=== PATIENT | female | born 1945 | race Caucasian/White ===

== ENCOUNTER → 2017-08-29 | Outpatient (CLI) | payer MEDICARE, OTHER ==
[2015-09-27 09:57] VITALS: BP 187/97
[~2017-08-29] MED LIST: AMLO1CAP12 PO; LISI1TAB3 PO; METO25TA2 PO
--- NOTE | 2017-08-30 08:18 | RAD ---
DATE: 08/29/2017 EXAM: DIGITAL SCREEN BILAT W/CAD HISTORY: Screening COMPARISON: Previous mammogram from 2014, 2012 and 2011. This study was interpreted with the benefit of Computerized Aided Detection (CAD ). FINDINGS: Breast density category B: There are scattered areas of fibroglandular density. The skin and nipples are within normal limits. There are no dominant suspicious masses, suspicious microcalcifications or evidence of architectural distortion. Benign-appearing skin calcifications are seen bilaterally. IMPRESSION: No mammographic evidence of malignancy. Stable mammogram. BI-RADS CATEGORY: 2 BENIGN FINDING RECOMMENDED FOLLOW-UP: Annual PQRS compliance statement: Patient information was entered into a reminder system with a target due date 08/29/2018 for the next mammogram. Mammography is a sensitive method for finding small breast cancers, but it does not detect them all and is not a substitute for careful clinical examination. A negative mammogram does not negate a clinically suspicious finding and should not result in delay in biopsying a clinically suspicious abnormality. "Our facility is accredited by the [employer] Mammography Program." [place]
== END | disposition home or self-care (01) ==
LOC: MAMMO 10:24
PROVIDERS: ATTEND Family Medicine
DX: Z12.31 Encounter for screening mammogram for malignant neoplasm of breast (principal)
CPT/HCPCS: G0202; 77067

== ENCOUNTER → 2018-01-19 | Outpatient (CLI) | payer MEDICARE, OTHER ==
[2015-09-27 09:57] VITALS: BP 187/97
--- NOTE | 2018-01-20 22:17 | RAD ---
MR#: [id number] Date of Study: 01/19/2018 Ordering Physician: EVANGELIST VALLECILLO, Referring Physician: EVANGELIST VALLECILLO, Tech: Samia Gilliam, RDMS, RVT, RTR APPROVED REPORT Patient Location: OUT-PATIENT Indications Peripheral Vascular Disease On the right spectral waveforms in the common femoral and profunda femoris are grossly within normal limits. The proximal SFA is occluded. There is reconstitution of the distal SFA with monophasic wavef orms. The popliteal and below-knee vessels appear to be patent without any high-grade focal disease. On the left there is again moderate diffuse atherosclerotic plaque with mildly elevated velocities in the mid SFA suggestive of 50% stenosis. The below-knee vessels are again widely patent with mostly b iphasic waveforms throughout the course. Risk Factors History of Lower Extremity PAD: Bilaterally VELOCITY AND DOPPLER WAVEFORM ANALYSIS RIGHT cm/secWaveformSeverity LEFT cm/secWaveform Severity pCFA 109.3pCFA 140.5 Prof Fem Art. 97.7Prof Fem Art. 107.4 Fem Art Prox. Fem Art Prox. 129.7 Fem Art Mid. Fem Art Mid. 194.4 Fem Art Dist. 65.1Fem Art Dist. 126.0 Pop Art(AK) 37.9Pop Art(AK) 88.2 AIRCRAFT MAINTENANCE ENGINEER Dist. 40.8PTA Dist. 52.1 Per Art Prox. 43.1Per Art Prox. 49.9 GINNY Prox. 36.1ATA Prox. 44.7 DPA 34.4DPA 36.8 Critical Notification Critical Value: No <Conclusion> 1. Occluded right superficial femoral artery 2. Moderate disease otherwise in the bilateral lower extremity arterial vessels. Signed by : Evangelist Vallecillo, Electronically Approved : 01/20/2018 22:16:28
== END | disposition home or self-care (01) ==
LOC: US 12:50
PROVIDERS: ATTEND Internal Medicine Cardiovascular Disease
DX: I70.203 Unspecified atherosclerosis of native arteries of extremities, bilateral legs (principal)
CPT/HCPCS: 93925

== ENCOUNTER → 2018-01-25 | Outpatient (CLI) | payer MEDICARE, OTHER ==
[2015-09-27 09:57] VITALS: BP 187/97
[2018-01-25 09:13] LABS: ALBUMIN 3.8 g/dL (3.4-5.0); ALBUMIN/GLOBULIN RATIO 1.2 (1.0-1.7); CREATININE 0.9 mg/dL (0.6-1.0); GFR 61.4; POTASSIUM 4.6 mmol/L (3.5-5.1); TOTAL BILIRUBIN 0.5 mg/dL (0.2-1.0); TOTAL PROTEIN 6.9 g/dL (6.4-8.2)
== END | disposition home or self-care (01) ==
LOC: LAB 07:30
PROVIDERS: ATTEND Internal Medicine Cardiovascular Disease
DX: I10 Essential (primary) hypertension (principal)
CPT/HCPCS: 36415; 80053; 80061

== ENCOUNTER → 2018-10-23 | Outpatient (CLI) | payer MEDICARE, OTHER ==
[2015-09-27 09:57] VITALS: BP 187/97
--- NOTE | 2018-10-23 13:37 | RAD ---
EXAM: Dual energy x-ray absorptiometry (DEXA). HISTORY: Postmenopausal presents for osteoporosis screening. COMPARISON: 10/13/2016. TECHNIQUE: Dual energy x-ray absorptiometry of the lumbar spine and right hip was performed. Calculation of bone mineral density based on standard deviations above or below the expected young adult normal value (T-score) was completed. FINDINGS: The average bone mineral density in the 1st through 4th lumbar vertebrae is 0.958 g/cmxcm, corresponding with a T-score of -1.9. There has been a 0.3 percent decrease in density of the lumbar spine compared to the prior study. The average total bone mineral density in the right hip is 0.714 g/cmxcm, corresponding with a T-score of -2.0. There has been a 1.0 percent decrease in density of the right hip compared to the prior study. IMPRESSION: Osteopenia measured at the lumbar spine and right hip. Note: Definitions established by the World Health Organization: 1. Normal: T-score is -1.0 or above. 2. Osteopenia: T-score is between -1.0 and -2.5 . 3. Osteoporosis: T-score is -2.5 or below. Electronically signed by: Aisha Avina MD (10/23/2018 1:34 PM) [facility]
== END | disposition home or self-care (01) ==
LOC: DXRAD 12:35
PROVIDERS: ATTEND Family Medicine
DX: M85.89 Other specified disorders of bone density and structure, multiple sites (principal); Z78.0 Asymptomatic menopausal state
CPT/HCPCS: 77080

== ENCOUNTER → 2019-02-11 | Outpatient (CLI) | payer MEDICARE, OTHER ==
[2015-09-27 09:57] VITALS: BP 187/97
--- NOTE | 2019-02-11 12:45 | RAD ---
Indication: Peripheral arterial disease. TECHNIQUE: Grayscale, color Doppler and spectral waveform images of the bilateral lower extremity arteries. COMPARISON: 01/19/2018 FINDINGS: Right side: Triphasic waveforms are seen in the LEAF CONDITIONER HELPER the with velocity of 86 cm/s. Triphasic waveforms seen in the profunda femoris artery with velocity of 62 cm/s. No flow is seen in the proximal and mid superficial femoral artery. Collateral vessel is seen with velocity of 70 cm/s. Biphasic waveforms seen in the distal SFA with velocity of 78 cm/s. Biphasic waveforms in the popliteal artery with velocity of 42 cm/s. Monophasic waveform is seen in the anterior tibial artery with velocity of 24 cm/s. Biphasic waveforms are seen in the distal LEAD ELECTRICAL ENGINEER with velocity of 40 cm/s. Biphasic waveforms are seen in the proximal LEAD ELECTRICAL ENGINEER with velocity of 36 cm/s. Biphasic waveforms are seen in the peroneal artery with velocity of 22 cm/s. Biphasic waveforms are seen in the dorsalis pedis artery with velocity of 35 cm/s. Left side: Biphasic waveforms are seen in the with velocity of 132 cm/s. Biphasic waveforms seen in the profunda femoris artery with velocity of 104 cm/s. Biphasic waveforms are seen in the proximal superficial femoral artery with velocity of 255 cm/s.. Biphasic waveforms seen in the mid SFA with velocity of 194 cm/s. Biphasic waveforms seen in the distal SFA with velocity of 199 cm/s. Biphasic waveforms in the popliteal artery with velocity of 89 cm/s. Biphasic waveform is seen in the anterior tibial artery with velocity of 62 cm/s. Biphasic waveforms are seen in the distal LEAD ELECTRICAL ENGINEER with velocity of 76 cm/s. Biphasic waveforms are seen in the proximal LEAD ELECTRICAL ENGINEER with velocity of 45 cm/s. Biphasic waveforms are seen in the peroneal artery with velocity of 40 cm/s. Biphasic waveforms are seen in the dorsalis pedis artery with velocity of 34 cm/s. IMPRESSION: 1. Stable occlusion of the proximal and mid right SFA with collateral flow to the distal SFA. 2. Moderate grade focal stenosis of the proximal left SFA. 3. Moderate bilateral diffuse atherosclerotic disease of the lower extremity arteries. Electronically signed by: Claudio Zelaya DO (02/11/2019 12:42 PM) [facility]
== END | disposition home or self-care (01) ==
LOC: US 10:24
PROVIDERS: ATTEND Internal Medicine Cardiovascular Disease
DX: I70.293 Other atherosclerosis of native arteries of extremities, bilateral legs (principal); I74.3 Embolism and thrombosis of arteries of the lower extremities
CPT/HCPCS: 93925

== ENCOUNTER → 2020-01-07 | Outpatient (CLI) | payer MEDICARE, OTHER ==
[2015-09-27 09:57] VITALS: BP 187/97
[~2020-01-07] MED LIST changes: -AMLO1CAP12 PO; +AMLO1CAP13 PO; +LISI1TAB23 PO; -LISI1TAB3 PO
--- NOTE | 2020-01-07 09:59 | RAD ---
DATE: January 07, 2020 EXAM: MAMMO BRINA SCREENING BILATERAL HISTORY: Screening study. COMPARISON: 2017 This study was interpreted with the benefit of Computerized Aided Detection (CAD). 2-D digital mammographic views of both breasts were performed in the CC and MLO projections. 3-D digital tomosynthesis images of both breasts were performed in the CC and MLO projections and reviewed on a computer workstation. FINDINGS: Breast Density: FATTY The breast parenchyma is primarily fatty replaced. Breast parenchyma level density A.. There are no dominant suspicious masses, suspicious microcalcifications or evidence of architectural distortion. IMPRESSION: No mammographic indicators for malignancy. BI-RADS CATEGORY: 1 NEGATIVE RECOMMENDED FOLLOW-UP: 12M 12 MONTH FOLLOW-UP PQRS compliance statement: Patient information was entered into a reminder system with a target due date January 08, 2021 for the next mammogram. Mammography is a sensitive method for finding small breast cancers, but it does not detect them all and is not a substitute for careful clinical examination. A negative mammogram does not negate a clinically suspicious finding and should not result in delay in biopsying a clinically suspicious abnormality. "Our facility is accredited by the [employer] Mammography Program." The patient's breast density may affect the ability of mammography to detect breast cancer. There are 4 categories of breast density, A, B, C and D. Breast density A means that most of the breast tissue is replaced with adipose tissue and therefore is not dense. Breast density B means that the breast tissue is mildly dense and scattered. Breast density C means that the breast tissue is heterogeneously dense. Breast density D means that the breast tissue is very dense. Breast densities especially C and D may decrease the sensitivity of mammography to detect breast cancer. Therefore, the patient may benefit from 3-D breast mammography (3D breast tomography) as a part of their screening mammogram. Insurance may or may not pay for this additional imaging. The patient's breast density based on today's mammogram is category A.
== END | disposition home or self-care (01) ==
LOC: MAMMO 08:51
PROVIDERS: ATTEND Family Medicine
DX: Z12.31 Encounter for screening mammogram for malignant neoplasm of breast (principal)
CPT/HCPCS: 77063; 77067

== ENCOUNTER → 2020-06-16 | Outpatient (CLI) | payer MEDICARE, OTHER ==
[2015-09-27 09:57] VITALS: BP 187/97
--- NOTE | 2020-06-16 14:37 | RAD ---
MR#: [id number] Date of Study: 06/16/2020 Ordering Physician: EVANGELIST BORGES, Referring Physician: EVANGELIST BORGES, Tech: Stormy Wallace RVT,[facility] APPROVED REPORT Patient Location: OUT-PATIENT Exam Type: Ankle to Brachial Index Indications Claudication: PAD Ankle-brachial indices as noted above. Mildly diminished bilateral ankle-brachial indices without an y critical abnormalities noted Risk Factors Hypertension Hyperlipidemia Smoking Pressures/Indices RightABI LeftABI Brachial 130mmHgBrachial 136mmHg Ankle(PT) 114mmHgAnkle(PT) 124mmHg Ankle(DP) 359tnVv2.89Ankle(DP) 515vqXh0.91 Critical Notification Critical Value: No Signed by : Evangelist Borges, Electronically Approved : 06/16/2020 14:37:03
--- NOTE | 2020-06-16 14:40 | RAD ---
MR#: [id number] Date of Study: 06/16/2020 Ordering Physician: EVANGELIST BORGES, Referring Physician: EVANGELIST BORGES, Tech: Stormy Wallace RVT, [facility] APPROVED REPORT Patient Location: OUT-PATIENT Indications Claudication: PAD Grayscale images of the bilateral lower extremity arterial vessels demonstrate mild to moderate diffu se atherosclerosis. On the right side a previous femoropopliteal bypass is occluded. The mid SFA is occluded. Velocities are diminished at the level of the popliteal artery with mostly biphasic wavef orms consistent with more proximal SFA obstruction. On the left side there are mostly biphasic wavef orms above the knee and monophasic waveforms below the knee without any critical obstructive disease. This likely lower velocity profile demonstrates diffuse disease rather than focal obstruction. The re is three-vessel runoff below the knee bilaterally Risk Factors Hypertension Hyperlipidemia Smoking VELOCITY AND DOPPLER WAVEFORM ANALYSIS RIGHT cm/secWaveformSeverity LEFT cm/secWaveform Severity pCFA 45.4TriphasicpCFA 90.6Biphasic Prof Fem Art. 64.0TriphasicProf Fem Art. 76.0Biphasic Fem Art Prox. 25.3BiphasicFem Art Prox. 46.7Biphasic Fem Art Mid. OccludedFem Art Mid. 119.8Biphasic Fem Art Dist. 46.3BiphasicFem Art Dist. 37.0Biphasic Pop Art(Fossa) 31.5BiphasicPop Art(AK) 30.7Monophasic ASSOCIATE STORE MANAGER Prox. 39.3BiphasicPTA Prox. 29.3Monophasic ASSOCIATE STORE MANAGER Dist. 41.6BiphasicPTA Dist. 25.7Monophasic Per Art Prox. 19.2Per Art Prox. 18.4Monophasic GINNY Prox. 33.0BiphasicATA Prox. 20.8Monophasic DPA 23BiphasicDPA 19Biphasic Critical Notification Critical Value: No <Conclusion> 1. Moderate bilateral disease without any critical focal stenosis except for known mid SFA occlusion 2. Mildly diminished J CARLOS bilaterally at 0.89 and 0.91. Signed by : Evangelist Borges, Electronically Approved : 06/16/2020 14:40:02
--- NOTE | 2020-06-16 14:42 | RAD ---
MR#: [id number] Date of Study: 06/16/2020 Ordering Physician: EVANGELIST BORGES, Referring Physician: EVANGELIST BORGES, Tech: Stormy Wallace RVT, [facility] APPROVED REPORT Patient Location: OUT-PATIENT Laterality:Bilateral Indications Grayscale images of the bilateral carotid vessels demonstrates mild diffuse atherosclerosis. Normal bilateral velocities are noted. Normal ICA to CCA ratios bilaterally. Normal antegrade vertebral ve locities bilaterally. Risk Factors Hypertension: Hyperlipidemia PAD Smoking Doppler Spectral Velocity Analysis Right Left pCCA 69/12 cm/spCCA 72/10 cm/s mCCA 61/16 cm/smCCA 57/12 cm/s dCCA 54/10 cm/sdCCA 60/12 cm/s ECA 57/5 cm/sECA 64/5 cm/s pICA 49/11 cm/spICA 49/12 cm/s Ellyn 65/20 cm/smICA 58/17 cm/s dICA 73/16 cm/sdICA 79/23 cm/s Vert. 45/8 cm/sVert. 34/9 cm/s ICA/CCA 1.06ICA/CCA 1.10 Critical Notification Critical Value: No <Conclusion> 1. No significant carotid occlusive disease bilaterally. Signed by : Evangelist Borges, Electronically Approved : 06/16/2020 14:41:39
== END | disposition home or self-care (01) ==
LOC: US 12:28
PROVIDERS: ATTEND Internal Medicine Cardiovascular Disease
DX: I65.23 Occlusion and stenosis of bilateral carotid arteries (principal); I73.9 Peripheral vascular disease, unspecified; I10 Essential (primary) hypertension
CPT/HCPCS: 93880; 93922; 93925

== ENCOUNTER → 2020-06-16 | Outpatient (CLI) | payer MEDICARE, OTHER ==
[2015-09-27 09:57] VITALS: BP 187/97
--- NOTE | 2020-06-16 15:59 | CARD ---
MR#: [id number] Date of Study: 06/16/2020 Ordering Physician: EVANGELIST VALLECILLO, Referring Physician: EVANGELIST VALLECILLO, Tech: Bettina Hartley REYNA APPROVED REPORT EXAM: Two-dimensional and M-mode echocardiogram with Doppler and color Doppler. Other Information Quality : Good Rhythm : Atrial Fibrillation INDICATION Hypertension/HCVD 2D DIMENSIONS RVDd2.3 (2.9-3.5cm)Left Atrium(2D)3.6 (1.6-4.0cm) IVSd1.1 (0.7-1.1cm)Aortic Root(2D)2.7 (2.0-3.7cm) LVDd4.8 (3.9-5.9cm)LVOT Diameter1.9 (1.8-2.4cm) PWd1.0 (0.7-1.1cm)LVDs3.5 (2.5-4.0cm) FS (%) 26.8 %SV57.4 ml LVEF(%)52.2 (>50%) Aortic Valve AoV Peak Bora.103.1cm/sAoV VTI18.7cm AO Peak GR.4.3mmHgLVOT Peak Bora.66.0cm/s LVOT VTI 13.96cmAO Mean GR.2mmHg RICK (VMAX)1.57qa6JCI (VTI)2.16cm2 Tricuspid Valve TR P. Ocraewgz100xr/sRAP NZUTEFDD3qaRb TR Peak Gr.37tyKyQJZS74jgGm Pulmonary Vein S1 Fjjghjsx00.3cm/sD2 Hufzkjuj11.9cm/s LEFT VENTRICLE The left ventricle is normal size. There is normal left ventricular wall thickness. Left ventricle sy stolic function is normal. The Ejection Fraction is 50-55%. Septal motion consistent with conduction abnormality. RIGHT VENTRICLE The right ventricle is normal size. The right ventricular systolic function is normal. ATRIA The left atrium size is normal. The right atrium size is normal. The interatrial septum is intact wit h no evidence for an atrial septal defect or patent foramen ovale as noted on 2-D or Doppler imaging. AORTIC VALVE The aortic valve is mildly thickened but opens well. Doppler and Color Flow revealed no significant a ortic regurgitation. There is no significant aortic valvular stenosis. MITRAL VALVE The mitral valve is calcified but opens well. Mitral annular calcification is mild. There is no evide nce of mitral valve prolapse. There is no mitral valve stenosis. Doppler and Color-flow revealed trac e to mild mitral regurgitation. TRICUSPID VALVE The tricuspid valve is normal in structure and function. Doppler and Color Flow revealed mild tricusp id regurgitation. The PA pressure was estimated at 31 mmHg. There is no tricuspid valve stenosis. PULMONIC VALVE The pulmonary valve is normal in structure and function. Doppler and Color Flow revealed moderate pul luis valvular regurgitation. There is no pulmonic valvular stenosis. GREAT VESSELS The aortic root is normal in size. The ascending aorta is normal in size. The IVC is normal in size a nd collapses >50% with inspiration. PERICARDIAL EFFUSION There is no evidence of significant pericardial effusion. Critical Notification Critical Value: No <Conclusion> The left ventricle is normal size. Left ventricle systolic function is normal. The Ejection Fraction is 50-55%. Doppler and Color Flow revealed no significant aortic regurgitation. There is no significant aortic valvular stenosis. Doppler and Color-flow revealed trace to mild mitral regurgitation. Doppler and Color Flow revealed mild tricuspid regurgitation. The PA pressure was estimated at 31 mmHg. Signed by : Hood Mccoy MD Electronically Approved : 06/16/2020 15:58:48
== END | disposition home or self-care (01) ==
LOC: ECHO 12:28
PROVIDERS: ATTEND Internal Medicine Cardiovascular Disease
DX: I08.8 Other rheumatic multiple valve diseases (principal); I10 Essential (primary) hypertension
CPT/HCPCS: 93306

== ENCOUNTER → 2021-03-25 | Outpatient (CLI) | payer MEDICARE, OTHER ==
[2015-09-27 09:57] VITALS: BP 187/97
--- NOTE | 2021-03-25 09:16 | RAD ---
EXAM: Bilateral screening mammogram. HISTORY: 75-year-old female presents for screening mammography. TECHNIQUE: Full-field digital craniocaudal and mediolateral oblique views of both breasts are obtaine d for evaluation. Computer aided detection was applied. COMPARISON: 01/07/2020 and 08/29/2017 BREAST PARENCHYMAL DENSITY: Level B - Scattered fibroglandular densities. FINDINGS: There is no new suspicious mass, microcalcification or region of architectural distortion. There are stable areas of asymmetry and nodularity within both breasts with allowing for devices in p atient positioning and compression technique. There are multiple benign calcifications. IMPRESSION: BI-RADS Category 2: Benign finding(s). RECOMMENDATION: Annual mammography is recommended. If your mammogram demonstrates that you have dense breast tissue, which could hide abnormalities, and if you have other risk factors for breast cancer that have been identified, you might benefit from s upplemental screening tests that may be suggested by your ordering physician. Dense breast tissue, i n and of itself, is a relatively common condition. This information is not provided to cause undue c oncern, but rather to raise your awareness and to promote discussion with your physician regarding th e presence of other risk factors, in addition to dense breast tissue. A report of your mammography re sults will be sent to you and your physician. You should contact your physician if you have any ques tions or concerns regarding this report. Mammography is a sensitive method for finding small breast cancers, but it does not detect them all a nd is not a substitute for careful clinical examination. A negative mammogram does not negate a clin ically suspicious finding and should not result in delay in biopsying a clinically suspicious abnorma lity. PQRS compliance statement - Patient information was entered into a reminder system with a target due date for the next mammogram. "Our facility is accredited by the [employer] Mammography Program." Electronically signed by: Aisha Avina MD (03/25/2021 9:14 AM) [id number]
== END ==
LOC: MAMMO 07:37
PROVIDERS: ATTEND Family Medicine
DX: Z12.31 Encounter for screening mammogram for malignant neoplasm of breast (principal)
CPT/HCPCS: 77067

== ENCOUNTER → 2021-09-10 | Outpatient (CLI) | payer MEDICARE, OTHER ==
[2015-09-27 09:57] VITALS: BP 187/97
[~2021-09-10] MED LIST changes: -LISI1TAB23 PO; +LISI1TAB35 PO
--- NOTE | 2021-09-10 16:23 | RAD ---
MR#: [id number] Date of Study: 09/10/2021 Ordering Physician: EVANGELIST VALLECILLO, Referring Physician: EVANGELIST VALLECILLO, Tech: Stormy Wallace RVT,[facility] APPROVED REPORT Patient Location: OUT-PATIENT Risk Factors PAD Hypertension Smoking Duplex Results A/PTransverseLongitudinal Proximal Aorta 2.2cm2.0cm Mid Aorta 1.6cm1.8cm Distal Aorta 1.7cm1.8cm Rt. Common Iliac Artery1.0cm1.1cm Lt. Common Iliac Artery 0.8cm1.1cm Doppler VelocityWaveform Proximal Aorta 79.5 cm/sec Aorta Mid. 147.0 cm/sec Distal Aorta 56.0 cm/sec Rt. Common Iliac Jiefen07.0 cm/sec Lt. Common Iliac Artery 88.0 cm/sec Critical Notification Critical Value: No <Conclusion> No evidence for abdominal aortic aneurysm. Signed by : Ruben Richmond, Electronically Approved : 09/10/2021 16:22:45
--- NOTE | 2021-09-10 16:59 | RAD ---
MR#: [id number] Date of Study: 09/10/2021 Ordering Physician: EVANGELIST BORGES, Referring Physician: EVANGELIST BORGES, Tech: Stormy Wallace RVT, [facility] APPROVED REPORT Patient Location: OUT-PATIENT Exam Type: Ankle to Brachial Index Indications Claudication: PAD Risk Factors Hypertension Smoking Pressures/Indices RightABI LeftABI Brachial 142mmHgBrachial 134mmHg Ankle(PT) 134mmHgAnkle(PT) 122mmHg Ankle(DP) 575odBx7.9Ankle(DP) 555yxNq5.9 Critical Notification Critical Value: No <Conclusion> 1. Near normal bilateral J CARLOS Signed by : Evangelist Borges, Electronically Approved : 09/10/2021 16:59:01
--- NOTE | 2021-09-10 17:00 | RAD ---
MR#: [id number] Date of Study: 09/10/2021 Ordering Physician: EVANGELIST BORGES, Referring Physician: EVANGELIST BORGES, Tech: Stormy Wallace RVT,[facility] APPROVED REPORT Patient Location: OUT-PATIENT Laterality:Bilateral Indications Grayscale images of the bilateral carotid vessels demonstrates mild intimal hyperplasia. This veloci ties and spectral waveforms are within normal limits bilaterally. Normal antegrade vertebral velocit ies. Normal ICA to CCA ratios. Risk Factors Hypertension: PAD Smoking Doppler Spectral Velocity Analysis Right Left pCCA 69/16 cm/spCCA 62/13 cm/s mCCA 56/8 cm/smCCA 65/14 cm/s dCCA 52/11 cm/sdCCA 71/20 cm/s ECA 65/8 cm/sECA 51/5 cm/s pICA 50/13 cm/spICA 51/15 cm/s Ellyn 74/21 cm/smICA 65/26 cm/s dICA 86/35 cm/sdICA 78/26 cm/s Vert. 46/10 cm/sVert. 34/9 cm/s ICA/CCA 1.25ICA/CCA 1.26 Critical Notification Critical Value: No <Conclusion> 1. No significant bilateral extracranial carotid occlusive disease Signed by : Evangelist Borges, Electronically Approved : 09/10/2021 16:59:50
--- NOTE | 2021-09-10 17:04 | RAD ---
MR#: [id number] Date of Study: 09/10/2021 Ordering Physician: EVANGELIST BORGES, Referring Physician: EVANGELIST BORGES, Tech: Stormy Wallace RVT,[facility] APPROVED REPORT Patient Location: OUT-PATIENT Indications Claudication: PAD Grayscale images of the bilateral lower extremity arterial vessels demonstrates mostly moderate diffu se atherosclerosis. On the right side the proximal to mid SFA is known occluded. Below the knee there are mostly biphasi c waveforms with diminished velocities. There is three-vessel runoff. On the left side the common femoral artery to the mid SFA is widely patent with biphasic waveforms an d normal velocities. The distal SFA is not well visualized but no clear evidence of flow is seen in the segment. Suspect that this is technical limitation rather than occlusion as the popliteal artery has normal velocity with biphasic waveforms. Below the knee there are monophasic waveforms with dim inished velocities suggestive of more proximal obstruction again this may correlate to the distal SFA abnormality noted above. Risk Factors Hypertension Smoking VELOCITY AND DOPPLER WAVEFORM ANALYSIS RIGHT cm/secWaveformSeverity LEFT cm/secWaveform Severity pCFA 86.2TriphasicpCFA 89.4Biphasic Prof Fem Art. 64.0BiphasicProf Fem Art. 59.0Biphasic Fem Art Prox. OccludedFem Art Prox. 38.0Biphasic Fem Art Mid. OccludedFem Art Mid. 75.7Biphasic Fem Art Dist. 40.9BiphasicFem Art Dist. Occluded Pop Art(Fossa) 26.9BiphasicPop Art(AK) 48.4Biphasic FINANCIAL DATA ANALYST Prox. 34.7BiphasicPTA Prox. 25.6Monophasic FINANCIAL DATA ANALYST Dist. 39.4BiphasicPTA Dist. 21.9Monophasic Per Art Prox. 20.2MonophasicPer Art Prox. 11.6Monophasic GINNY Prox. 35.0BiphasicATA Prox. 21.1Monophasic GINNY Dist. GINNY Dist. DPA 29BiphasicDPA 19Monophasic Critical Notification Critical Value: No <Conclusion> 1. Severe bilateral SFA disease with diminished three-vessel runoff below the knee 2. Minimally abnormal bilateral J CARLOS at 0.9 Signed by : Evangelist Borges, Electronically Approved : 09/10/2021 17:04:20
== END ==
LOC: US 08:50
PROVIDERS: ATTEND Internal Medicine Cardiovascular Disease
DX: I70.213 Atherosclerosis of native arteries of extremities with intermittent claudication, bilateral legs (principal); I77.9 Disorder of arteries and arterioles, unspecified; R09.89 Other specified symptoms and signs involving the circulatory and respiratory systems; I10 Essential (primary) hypertension; Z72.0 Tobacco use
CPT/HCPCS: 76770; 93880; 93923; 93925

== ENCOUNTER → 2021-10-05 | Outpatient (CLI) | payer MEDICARE, OTHER ==
[2015-09-27 09:57] VITALS: BP 187/97
[~2021-10-05] MED LIST changes: +IOHEXOL 350 MG/ML 100 ML VIAL. IV ONE
--- NOTE | 2021-10-05 10:32 | RAD ---
EXAMINATION: CTA HEAD CLINICAL HISTORY: Transient cerebral ischemic attack, memory loss TECHNIQUE: Spiral high resolution axial images were obtained through the head without intravenous con trast and following bolus administration of intravenous contrast for CT angiography. 3D maximum inten sity projection images also performed. CT Dose Reduction Employed: One or more of the following individualized dose reduction techniques wer e utilized for this examination: 1. Automated exposure control 2. Adjustment of the mA and/or kV ac cording to patient size 3. Use of iterative reconstruction technique. COMPARISON: None FINDINGS: BRAIN: No evidence of acute infarct or intracranial hemorrhage. No evidence of extra-axial fluid collection, intra-axial mass, or significant mass effect. Patchy areas of supratentorial white matter hypoattenu ation, nonspecific but most likely related to moderate chronic microvascular ischemia. Mild generaliz ed parenchymal volume loss with proportionate ventricular enlargement. Paranasal sinuses and mastoids clear. Skull base unremarkable. CT ARTERIOGRAM: Anterior Circulation: No evidence of large vessel occlusion. Mild calcified plaque in the intracrania l portion of the bilateral internal carotid arteries. Vertebrobasilar Circulation: No evidence of large vessel occlusion. IMPRESSION: No evidence of large vessel occlusion or significant stenosis. Nonspecific white matter changes as described, compatible with sequelae of chronic microvascular isch emia. Electronically signed by: Blake Mendieta DO (10/05/2021 10:29 AM) [facility]
== END ==
LOC: CT 08:45
PROVIDERS: ATTEND Family Medicine
DX: G93.89 Other specified disorders of brain (principal); G45.9 Transient cerebral ischemic attack, unspecified
CPT/HCPCS: 70496; Q9967

== ENCOUNTER → 2022-01-25 | Outpatient (CLI) | payer MEDICARE, OTHER ==
[2015-09-27 09:57] VITALS: BP 187/97
[~2022-01-25] MED LIST changes: -IOHEXOL 350 MG/ML 100 ML VIAL. IV ONE
--- NOTE | 2022-01-26 12:45 | CARD ---
MR#: [id number] Date of Study: 01/25/2022 Ordering Physician: EVANGELIST VALLECILLO, Referring Physician: EVANGELIST VALLECILLO, Tech: Washington Cook [facility] APPROVED REPORT EXAM: Two-dimensional and M-mode echocardiogram with Doppler and color Doppler. Other Information Quality : GoodHR: 82bpm Rhythm : Atrial Fibrillation INDICATION Atrial Fibrillation RISK FACTORS Hypertension Smoking Peripheral arterial disease 2D DIMENSIONS Left Atrium(2D)4.8 (1.6-4.0cm)IVSd0.9 (0.7-1.1cm) Aortic Root(2D)2.8 (2.0-3.7cm)LVDd4.9 (3.9-5.9cm) LVOT Diameter1.9 (1.8-2.4cm)PWd0.9 (0.7-1.1cm) LA Umnudp299 (18-58mL)LVDs3.4 (2.5-4.0cm) FS (%) 31.4 %SV66.4 ml Aortic Valve AoV Peak Bora.93.9cm/sAoV VTI21.0cm AO Peak GR.3.5mmHgLVOT Peak Bora.60.7cm/s LVOT VTI 13.14cmAO Mean GR.2mmHg RICK (VMAX)1.93ey8ZDU (VTI)1.80cm2 Mitral Valve MV E Peak Gr.5mmHgMV E Mean Gr.2mmHg Pulmonary Valve PV Peak Konwwmds95.2cm/sPV Peak Grad.3mmHg Tricuspid Valve TR P. Xlxjguhq487ve/sTR Peak Gr.31mmHg LEFT VENTRICLE The left ventricle is normal size. There is normal left ventricular wall thickness. The left ventricu lar systolic function is normal and the ejection fraction is within normal range. The Ejection Fracti on is 55-60% There is normal LV segmental wall motion. No left ventricle thrombus noted on this study . There is no ventricular septal defect visualized. There is no left ventricular aneurysm. There is n o mass noted in the left ventricle. RIGHT VENTRICLE The right ventricle is borderline dilated. There is normal right ventricular wall thickness. The righ t ventricular systolic function is normal. ATRIA The left atrium is mild to moderately dilated. The right atrium is mild to moderately dilated. The in teratrial septum is intact with no evidence for an atrial septal defect or patent foramen ovale as no eloisa on 2-D or Doppler imaging. AORTIC VALVE The aortic valve is mildly sclerotic. The aortic valve is tri-cuspid. Doppler and Color Flow revealed no significant aortic regurgitation. There is no significant aortic valvular stenosis. There is no a ortic valvular vegetation. MITRAL VALVE The mitral valve is mildly thickened. There is no evidence of mitral valve prolapse. There is no mitr al valve stenosis. Doppler and Color-flow revealed mild mitral regurgitation. TRICUSPID VALVE The tricuspid valve leaflets are thickened , but open well. Doppler and Color Flow revealed mild to m oderate tricuspid regurgitation. The PA pressure was estimated at 45 mmHg. There is no tricuspid valv e prolapse or vegetation. There is no tricuspid valve stenosis. PULMONIC VALVE The pulmonary valve is normal in structure and function. There is mild pulmonic regurgitation. There is no pulmonic valvular stenosis. GREAT VESSELS The aortic root is normal in size. The ascending aorta is normal in size. The pulmonary artery is nor mal. The IVC is dilated with blunted inspiratory response. PERICARDIAL EFFUSION There is no pleural effusion. There is no evidence of significant pericardial effusion. Critical Notification Critical Value: No <Conclusion> The left ventricle is normal size. The left ventricular systolic function is normal and the ejection fraction is within normal range. The Ejection Fraction is 55-60% Doppler and Color Flow revealed no significant aortic regurgitation. There is no significant aortic valvular stenosis. Doppler and Color-flow revealed mild mitral regurgitation. Doppler and Color Flow revealed mild to moderate tricuspid regurgitation. The PA pressure was estimated at 45 mmHg. Signed by : Hood Mccoy MD Electronically Approved : 01/26/2022 12:42:46
== END ==
LOC: ECHO 09:47
PROVIDERS: ATTEND Internal Medicine Cardiovascular Disease
DX: I08.8 Other rheumatic multiple valve diseases (principal); G45.9 Transient cerebral ischemic attack, unspecified
CPT/HCPCS: 93306

== ENCOUNTER → 2022-04-26 | Outpatient (CLI) | payer MEDICARE, OTHER ==
[2015-09-27 09:57] VITALS: BP 187/97
--- NOTE | 2022-04-26 11:43 | RAD ---
Digital bilateral screening mammogram dated 04/26/2022. INDICATION: 76 years of age asymptomatic female patient presents for screening mammography. Screening TECHNIQUE: Digital MLO and CC views of both breasts were obtained. No tomography was performed COMPARISON: 03/25/2021 03/31/2015. BREAST COMPOSITION: Category B: There are scattered fibroglandular densities. FINDINGS: No suspicious mass or clustered microcalcification. No architectural distortion. Parenchymal pattern is stable. IMPRESSION: No mammographic evidence of malignancy. RECOMMENDATION: Annual screening mammography is recommended, unless clinically indicated sooner based on symptoms or change in physical exam. BIRADS 1: NEGATIVE This study was interpreted with the benefit of Computerized Aided Detection (CAD). Recommend routine screening in one year Patient information is entered into the reminder system with a target due date for the next screening mammogram. Mammography is the most sensitive method for finding small breast cancers, but it does not detect the m all and is not a substitute for careful clinical examination. A negative mammogram does not negate a clinically suspicious finding and should not result in delay in biopsying a clinically suspicious a bnormality. "Our facility is accredited by the [employer] Mammography Program." Electronically signed by: Jaime aPtel MD (04/26/2022 11:40 AM) [id number]
== END ==
LOC: MAMMO 09:56
PROVIDERS: ATTEND Family Medicine
DX: Z12.31 Encounter for screening mammogram for malignant neoplasm of breast (principal)
CPT/HCPCS: 77067